=== PATIENT | male | born 2005 | race Caucasian/White ===

== ENCOUNTER 2023-02-12 06:19 | Day surgery (SDC) | payer BC ==
[2023-02-11 10:40] VITALS: BMI 24.0
[2023-02-12] MEDS ORDERED: Midazolam HCl 2 mg/2 ml Vial ONE (07:46)
[2023-02-12] MEDS ORDERED: Ropivacaine 0.2% HCl/PF 20 ML ONE (07:46)
[2023-02-12] MEDS ORDERED: fentaNYL 50 mcg/mL 1 mL Vial ONE ×2 (07:46→08:19)
[2023-02-12] MEDS ORDERED: Ropivacaine 0.5% HCl/PF (150 MG/30 ML VIAL) ONE (07:47)
[2023-02-12] MEDS ORDERED: Rocuronium Bromide 10 MG/ML (10ML VIAL) ONE (08:19)
[2023-02-12] MEDS ORDERED: Lidocaine 1% PF 5 ML VIAL ONE (08:19)
[2023-02-12] MEDS ORDERED: PROPOFOL 20 ML ONE ×2 (08:19→10:31)
[2023-02-12] MEDS ORDERED: Bupivacaine 0.25% HCL 30 ML VIAL ONE (08:44)
[2023-02-12] MEDS ORDERED: EPINEPHrine 1 MG/ML VIAL ONE (08:44)
[2023-02-12] MEDS ORDERED: CEFAZOLIN 2 GM VIAL ONE (08:58)
[2023-02-12] MEDS ORDERED: Sodium Chloride 0.9% 100 ML ONE (08:58)
[2023-02-12] MEDS ORDERED: HYDROcodone/Acetaminophen 10/325 mg Tablet PO PRN ×2 (09:00)
[2023-02-12] MEDS ORDERED: Ondansetron PF 4 MG/2 ML Vial IVP PRN (09:00)
[2023-02-12] MEDS ORDERED: Ropivacaine 0.2% 550 ML 550 ML NERVE BLCK SCH (09:00)
[2023-02-12] MEDS ORDERED: Promethazine HCl 25 MG/ML VIAL IM PRN (09:00)
[2023-02-12] MEDS ORDERED: Zolpidem Tartrate 5 MG TAB PO PRN (09:00)
[2023-02-12] MEDS ORDERED: Dexamethasone 20 MG/5 ML VIAL ONE (09:20)
[2023-02-12] MEDS ORDERED: PHENYLEPHRINE-NS 100 MCG/ML 10 ML SYRINGE ONE (09:58)
[2023-02-12] MEDS ORDERED: Ondansetron PF 4 MG/2 ML Vial ONE (10:21)
[2023-02-12] MEDS ORDERED: SUGAMMADEX SODIUM 200 MG/2 ML VIAL ONE (10:22)
[2023-02-12] MEDS ORDERED: Ketorolac Tromethamine 30 MG/ML VIAL IVP SCH (12:00)
== END 2023-02-12 12:25 | disposition home or self-care (01) ==
LOC: SDC 06:19
PROVIDERS: ATTEND Orthopaedic Surgery
PROC: 0RQK4ZZ Repair Left Shoulder Joint, Percutaneous Endoscopic Approach (ICD-10-PCS; principal; 2023-02-12)
PROC: 0RCK4ZZ Extirpation of Matter from Left Shoulder Joint, Percutaneous Endoscopic Approach (ICD-10-PCS; principal; 2023-02-12)
DX: S43.432A Superior glenoid labrum lesion of left shoulder, initial encounter (principal); M24.812 Other specific joint derangements of left shoulder, not elsewhere classified; G25.89 Other specified extrapyramidal and movement disorders; X58.XXXA Exposure to other specified factors, initial encounter
CPT/HCPCS: A4306; C1713; J0171; J1100; J2250; J2405; J2704; J2795; J3010; J3490; S0020